=== PATIENT | female | born 1970 | race Two or more races ===

== ENCOUNTER 2018-11-04 16:00 | Emergency (ER) | payer BC ==
[2018-11-04] MEDS ORDERED: Ondansetron 4 MG/2 ML SDV IVPUSH ONE (16:28)
[2018-11-04] MEDS ORDERED: Sodium Chloride 0.9% 1,000 ML IV ONE (16:28)
[2018-11-04] MEDS ORDERED: Sodium Chloride 0.9% 10 ML Syringe FLUSH PRN (16:28)
[2018-11-04] MEDS ORDERED: HYDROmorphone 0.5 MG/0.5 ML Syringe IVPUSH ONE (16:31)
--- NOTE | 2018-11-04 16:31 | EDM.PDOC ---
ED HPI GENERAL MEDICAL PROBLEM - General Chief Complaint: Abdominal Pain Stated Complaint: ABDOMINAL PAIN AND BLOATING Time Seen by Provider: 11/04/18 16:18 Source of Information: Reports: Patient History Limitations: Reports: No Limitations - History of Present Illness INITIAL COMMENTS - FREE TEXT/NARRATIVE: Patient is a 48-year-old female who presents to the ED complaining of epigastric pain. Patient states the discomfort came on at approximately 1540 this afternoon after eating a Atkins bar. She just returned from a appointment with Dr. Avila bariatric surgeon with [facility] [place]. There is no concerns. Surgery took place this past fall. States has been no recent sick contacts, Diarrhea, bloody emesis, dark tarry stools, bloody stools, dysuria, or any additional complaint. Epigastric Pain Score (Numeric/FACES): 10 - Related Data Allergies Allergy/AdvReac Type Severity Reaction Status Date / Time peanut Allergy Severe Airway Verified 11/04/18 16:12 Tightness ciprofloxacin [From Cipro] Allergy Airway Verified 11/04/18 16:12 Tightness codeine Allergy Itching Verified 11/04/18 16:12 escitalopram [From Lexapro] Allergy Itching Verified 11/04/18 16:12 Iodinated Contrast- Oral and Allergy Other Verified 11/04/18 16:12 IV Dye pantoprazole [From Protonix] Allergy Itching Verified 11/04/18 16:12 Home Meds: Home Meds Biotin 1 mg PO DAILY 11/04/18 [History] Cyanocobalamin/Folic AC/Vit B6 [Folbee] 1 tab PO DAILY 11/04/18 [History] Multivitamin [Flintstones] 1 tab PO DAILY 11/04/18 [History] Multivitamin/Iron/Folic Acid [Centrum Women Tablet] 1 tab PO DAILY 11/04/18 [ History] Thiamine HCl [Vitamin B-1] 100 mg PO DAILY 11/04/18 [History] Past Medical History Respiratory History: Reports: Asthma Gastrointestinal History: Reports: GERD Psychiatric History: Reports: Depression, PTSD Oncologic (Cancer) History: Reports: Other (See Below) - Past Surgical History HEENT Surgical History: Reports: Eye Surgery GI Surgical History: Reports: Bariatric Procedure Musculoskeletal Surgical History: Reports: Other (See Below) Other Musculoskeletal Surgeries/Procedures:: R meniscus repair Oncologic Surgical History: Reports: Lumpectomy Other Oncologic Surgeries/Procedures: Lumpectomy R breast, lump R neck Social & Family History - Tobacco Use Smoking Status *Q: Former Smoker Used Tobacco, but Quit: Yes Month/Year Tobacco Last Used: 09/2018 - Caffeine Use Caffeine Use: Reports: None - Recreational Drug Use Recreational Drug Use: No ED ROS GENERAL - Review of Systems Review Of Systems: ROS reveals no pertinent complaints other than HPI. ED EXAM, GI/ABD - Physical Exam Exam: See Below Exam Limited By: No Limitations General Appearance: Alert, WD/WN, Mild Distress Ears: Hearing Grossly Normal Nose: Normal Inspection Throat/Mouth: Normal Inspection, Normal Oropharynx, Normal Voice, No Airway Compromise Head: Atraumatic, Normocephalic Neck: Normal Inspection, Supple Respiratory/Chest: No Respiratory Distress, Lungs Clear, Normal Breath Sounds, No Accessory Muscle Use, Chest Non-Tender Cardiovascular: Normal Peripheral Pulses, Regular Rate, Rhythm, No Murmur GI/Abdominal Exam: Distended, Tender (epigastric region. negative james sign. ) , Abnormal Bowel Sounds (hyperactive). No: Guarding, Rigid, Rebound Back Exam: Normal Inspection. No: CVA Tenderness (L), CVA Tenderness (R) Extremities: Normal Inspection Neurological: Alert, Oriented, CN II-XII Intact, Normal Cognition, No Motor/ Sensory Deficits Psychiatric: Normal Affect, Normal Mood Skin Exam: Warm, Dry, Intact, Normal Color Course - Vital Signs Last Recorded V/S: Last Vital Signs Temp 97.2 F 11/04/18 16:16 Pulse 54 L 11/04/18 16:16 Resp 20 11/04/18 16:16 BP 132/82 11/04/18 16:16 Pulse Ox 99 11/04/18 16:16 - Orders/Labs/Meds Orders: Active Orders 24 hr Category Date Time Status Peripheral IV Care [RC] . DIRECTED Care 11/04/18 16:29 Active CULTURE URINE [RM] Stat Lab 11/04/18 18:09 Ordered Peripheral IV Insertion Adult [OM.PC] Routine Oth 11/04/18 16:28 Ordered Labs: Laboratory Tests 11/04/18 11/04/18 11/04/18 Range/Units 16:45 16:45 16:45 WBC 13.45 H (3.98-10.04) K/mm3 RBC 5.04 (3.98-5.22) M/mm3 Hgb 15.6 (11.2-15.7) gm/L Hct 46.0 H (34.1-44.9) % MCV 91.3 (79.4-94.8) fl MCH 31.0 (25.6-32.2) pg MCHC 33.9 (32.2-35.5) g/dl RDW Std Deviation 43.9 (36.4-46.3) fL Plt Count 335 (182-369) K/mm3 MPV 10.4 (9.4-12.3) fl Neutrophils % (Manual) 83 H (40-60) % Band Neutrophils % 0 (0-10) % Lymphocytes % (Manual) 13 L (20-40) % Atypical Lymphs % 0 % Monocytes % (Manual) 3 (2-10) % Eosinophils % (Manual) 1 (0.7-5.8) % Basophils % (Manual) 0 L (0.1-1.2) Platelet Estimate Adequate RBC Morph Comment Normal Sodium 139 (136-145) mEq/L Potassium 3.9 (3.5-5.1) mEq/L Chloride 100 (98-107) mEq/L Carbon Dioxide 31 (21-32) mEq/L Anion Gap 11.9 (5-15) BUN 24 H (7-18) mg/dL Creatinine 0.8 (0.55-1.02) mg/dL Est Cr Clr Drug Dosing 80.51 mL/min Estimated GFR (MDRD) > 60 (>60) mL/min BUN/Creatinine Ratio 30.0 H (14-18) Glucose 113 H (74-106) mg/dL Calcium 10.4 H (8.5-10.1) mg/dL Total Bilirubin 0.6 (0.2-1.0) mg/dL AST 40 H (15-37) U/L ALT 74 H (14-59) U/L Alkaline Phosphatase 120 H (46-116) U/L C-Reactive Protein < 0.2 (<1.0) mg/dL Total Protein 9.0 H (6.4-8.2) g/dl Albumin 4.8 (3.4-5.0) g/dl Globulin 4.2 gm/dL Albumin/Globulin Ratio 1.1 (1-2) Lipase 115 (73-393) U/L Urine Color Yellow (Yellow) Urine Appearance Clear (Clear) Urine pH 6.0 (5.0-8.0) Ur Specific [place] 1.025 (1.005-1.030) Urine Protein Negative (Negative) Urine Glucose (UA) Negative (Negative) Urine Ketones Trace H (Negative) Urine Occult Blood Negative (Negative) Urine Nitrite Negative (Negative) Urine Bilirubin Negative (Negative) Urine Urobilinogen 0.2 (0.2-1.0) Ur Leukocyte Esterase 1+ H (Negative) Urine RBC 0-5 (0-5) /hpf Urine WBC 5-10 H (0-5) /hpf Ur Squamous Epith Cells 0-5 (0-5) /hpf Urine Bacteria Few (FEW) /hpf Urine Mucus Moderate H (FEW) /hpf Meds: Medications Discontinued Medications Generic Name Dose Route Start Last Admin Trade Name Freq PRN Reason Stop Dose Admin Hydromorphone HCl 0.5 mg 11/04/18 16:31 11/04/18 16:47 Dilaudid IVPUSH 11/04/18 16:32 0.5 mg ONETIME ONE Administration Sodium Chloride 1,000 mls @ 250 mls/hr 11/04/18 16:28 11/04/18 16:47 Normal Saline IV 11/04/18 20:27 250 mls/hr .BOLUS ONE Administration Ondansetron HCl 4 mg 11/04/18 16:28 11/04/18 16:47 Zofran IVPUSH 11/04/18 16:29 4 mg ONETIME ONE Administration Sodium Chloride 10 ml 11/04/18 16:28 11/04/18 16:47 Saline Flush FLUSH 10 ml ASDIRECTED PRN Administration Keep Vein Open - Re-Assessments/Exams Free Text/Narrative Re-Assessment/Exam: On examination patient has epigastric abdominal discomfort with palpation. She' s feeling bloated. History of gastric bypass with 2 episodes of emesis today after eating atkins protein bar. Patient was just evaluated by Dr. Avila General Surgeon with no concerns. Patient has not been passing and air. No blood within her emesis. Denies any fever, chest pain, shortness of breath, dysuria, dark tarry stools, bloody stools, and/or any additional complaints. She has not eaten any bad or questionable food. No recent sick exposures. IV established with Zofran 4 mg IVP and also Dilaudid 0.5 mg IVP. NS fluids started as well. Initial labs and studies include: CBC, chem 14, CRP, lipase, and UA. Two-view of the abdomen will be obtained. Labs reviewed: White blood cell count 13.45, hemoglobin and platelet count normal. Neutrophil percentage increased at 83. No left shift. Suspect elevation due to stress response with 2 episodes of emesis. Sodium and potassium normal. BUN slightly elevated at 24. EKG normal. Creatinine normal. Glucose 113. Calcium elevated at 10.4. AST and ALT mildly elevated. Alk phosphatase 120. CRP normal. Lipase normal. Patient knows that her calcium levels are elevated. UA trace ketones, leukocyte esterase positive, urine wbc's 5-10, moderate mucus. Appears to be contaminated. She has no voiding symptoms. Urine culture obtained. 1800 Reassessment, patient sitting up in bed with no complaints at this time. She is ready to be discharged home. I instructed the patient follow-up with PCP in 3-5 days for reevaluation. Return precautions were discussed with the patient. Patient had no further questions or concerns. Departure - Departure Time of Disposition: 18:11 Disposition: Home, Self-Care 01 Condition: Good Clinical Impression: Abdominal pain Qualifiers: Abdominal location: epigastric Qualified Code(s): R10.13 - Epigastric pain - Discharge Information Instructions: Nausea and Vomiting, Adult, [id number], Abdominal Pain, Adult, [id number], Pain Medicine Instructions, [id number] Referrals: Skyla Granger MD [Primary Care Provider] - Forms: ED Department Discharge Additional Instructions: Please follow up with PCP in next 3-5 days. Return to ED if you develop any new or worsening symptoms. Refrain from eating the Atkins bars or any fiber one bars as well. Do not drive this evening since receiving a sedative medication. - My Orders Last 24 Hours: My Active Orders 11/04/18 16:28 Peripheral IV Insertion Adult [OM.PC] Routine 11/04/18 16:29 Peripheral IV Care [RC] . DIRECTED 11/04/18 18:09 CULTURE URINE [RM] Stat - Assessment/Plan Last 24 Hours: My Active Orders 11/04/18 16:28 Peripheral IV Insertion Adult [OM.PC] Routine 11/04/18 16:29 Peripheral IV Care [RC] . DIRECTED 11/04/18 18:09 CULTURE URINE [RM] Stat
--- NOTE | 2018-11-04 18:33 | CR ---
Abdomen: Supine and upright views of the abdomen were obtained. Comparison: No prior abdominal x-ray. Slight increased stool is noted within the colon. Bowel gas pattern is otherwise unremarkable. Surgical clips are seen within the upper abdomen. No abnormal calcifications or discrete soft tissue abnormality is seen. Bony structures appear within normal limits for the patient's age. Impression: 1. Slight increased stool within the colon. Other incidental findings. Diagnostic code #2
== END 2018-11-04 18:25 | disposition home or self-care (01) ==
LOC: JD.ED 16:00
DX: R10.13 Epigastric pain (principal); Z98.84 Bariatric surgery status; Z87.891 Personal history of nicotine dependence; Z91.010 Allergy to peanuts; Z88.5 Allergy status to narcotic agent; Z91.041 Radiographic dye allergy status; Z88.8 Allergy status to other drugs, medicaments and biological substances; Z88.1 Allergy status to other antibiotic agents
CPT/HCPCS: 36415; 74019; 80053; 81001; 83690; 85007; 85027; 86140; 87086; 96361; 96374; 96375; 99284; J1170; J2405; J7040